=== PATIENT | male | born 1975 | race African-American/Black ===

== ENCOUNTER 2021-12-26 19:05 | Emergency (ER) | payer SELFPAY | END 2021-12-26 22:27 | disposition left against medical advice (07) | LOC: ER 19:06 | DX: Z53.21 Procedure and treatment not carried out due to patient leaving prior to being seen by health care provider (principal) ==

== ENCOUNTER 2021-12-28 16:15 | Emergency (ER) | payer MEDICARE ==
[~2021-12-28] VITALS: Ht 167.6 cm; Wt 97.0 kg
[2021-12-28] MEDS ORDERED: risperiDONE 2mg tablet PO ONE (17:00)
[2021-12-28] MEDS ORDERED: LORazepam 1 MG tablet PO ONE (17:00)
[2021-12-28 17:05] LABS: BASOPHILS % (AUTO) 0.9 % (0-1); EOSINOPHILS # (AUTO) 0.1 X10'3 (0-0.9); EOSINOPHILS % (AUTO) 1.5 % (0-6); HEMATOCRIT 38.6 % (42.0-52.0); HEMOGLOBIN 12.8 g/dl (14.0-17.9); LYMPHOCYTES # (AUTO) 1.9 X10'3 (1.1-4.8); MEAN CORPUSCULAR HEMOGLOBIN 24.6 PG (27.0-31.0); MEAN CORPUSCULAR HGB CONC 33.2 g/dL (33.0-36.5); MEAN CORPUSCULAR VOLUME 74.2 FL (78-98); MEAN PLATELET VOLUME 9.1 FL (7.4-10.4); MONOCYTES # (AUTO) 0.4 X10'3 (0-0.9); NEUTROPHILS # (AUTO) 2.4 X10'3 (1.8-7.7); NEUTROPHILS % (AUTO) 49.6 % (42-75); PLATELET COUNT 201 X10'3 (140-440); RED BLOOD COUNT 5.21 X10'6 (4.70-6.10); RED CELL DISTRIBUTION WIDTH 15.4 % (11.5-14.5); WHITE BLOOD COUNT 4.8 X10'3 (4.5-11.0)
[2021-12-28 17:17] LABS: ALANINE AMINOTRANSFERASE 35 U/L (12-78); ALBUMIN 3.5 G/DL (3.4-5.0); ALBUMIN/GLOBULIN RATIO 0.9 (1.1-1.5); ALKALINE PHOSPHATASE 76 IU/L (46-116); ANION GAP 11 (8-16); ASPARTATE AMINO TRANSFERASE 24 U/L (10-37); BILIRUBIN,TOTAL 0.4 MG/DL (0.1-1.0); BLOOD UREA NITROGEN 10 MG/DL (7-18); BUN/CREATININE RATIO 12.7 (5.4-32.0); CALCIUM 8.5 MG/DL (8.5-10.1); CHLORIDE 106 MMOL/L (99-107); CREATININE 0.79 MG/DL (0.60-1.10); GLUCOSE 119 MG/DL (70-104); POTASSIUM 3.3 MMOL/L (3.5-5.1); SODIUM 141 MMOL/L (135-145); TOTAL CARBON DIOXIDE 24.5 MMOL/L (24-32); TOTAL PROTEIN 7.4 G/DL (6.4-8.2); eGFR > 90 ML/MIN
[2021-12-28 17:28] LABS: ETHANOL < 0.010 GM/DL (0.0-0.010)
--- NOTE | 2021-12-28 21:00 | NUR ---
PATIENT ARRIVED ON THE UNIT IN NO OBVIOUS DISTRESS. NO PHYSICAL COMPLAINT MADE. BREATHING SPONTANOUSLY ON ROOM AIR. PATIENT ADMITS TO AUDIOTARY HALLUCINATION, HE STATES THAT THE VOICES ARE TELLING HIM TO JUMP OFF THE BRIDGE. PATIENT DENIES HAVING ANY SUICIDAL IDEATION AT THIS TIME.
--- NOTE | 2021-12-29 03:44 | NUR ---
PATIENT ASLEEP IN NO OBVIOUS DISTRESS.
--- NOTE | 2021-12-29 06:30 | NUR ---
CARE ASSUMED FROM OFF GOING NURSE SANDY RN. PT. VISIBLE LYING I N BED AWAKE. PT. AMBULATED TO BATHROOM WITH ANY DIFFICULTY NOTED. URINE SAMPLE OBTAINED AND SENT TO LAB. PT. BACK IN BED AFTERWARDS RESTING QUIETLY. STAFF WILL CONTINUE TO MONITOR FOR SAFETY.
[2021-12-29 07:53] LABS: URINE AMPHETAMINE SCREEN NEGATIVE (Neg); URINE BARBITUATE SCREEN NEGATIVE (Neg); URINE BENZODIAZEPINES SCREEN NEGATIVE (Neg); URINE CANNABINOID SCREEN NEGATIVE (Neg); URINE COCAINE SCREEN NEGATIVE (Neg); URINE METHADONE SCREEN NEGATIVE (Neg); URINE OPIATE SCREEN NEGATIVE (Neg); URINE PHENCYCLIDINE SCREEN NEGATIVE (Neg)
[2021-12-29 07:57] LABS: CLARITY,URINE CLEAR (Clear); COLOR,URINE YELLOW (Yellow); GLUCOSE, URINE NEGATIVE (Neg); KETONES,URINE NEGATIVE (Neg); LEUKOCYTE ESTERASE ,URINE NEGATIVE (Neg); NITRITES, URINE NEGATIVE (Neg); OCCULT BLOOD,URINE NEGATIVE (Neg); PH,URINE 5.5 (4.8-8.0); PROTEIN,URINE NEGATIVE (Neg); UA COLLECTION TYPE NON-SPECIFIED; UROBILINOGEN,URINE 0.2 E.U/dL (0.2-1.0)
--- NOTE | 2021-12-29 08:10 | NUR ---
PACKET FAXED TO [facility] OFFICE FOR REVIEW.
[2021-12-29] MEDS ORDERED: RISP3TAB11 PO ×2 (08:34→10:33)
[2021-12-29] MEDS ORDERED: DIVA500T9 PO ×2 (08:34→10:33)
--- NOTE | 2021-12-29 08:40 | NUR ---
THIS PUBLICITY WRITER SPOKE WITH PHARMCIST AT [facility] IN [place] TO VERIFIY CURRENT MEDICATIONS FOR PATIENT. MEDICATION RECONCILIATION COMPLETED AND FAXED TO PHARMACY.
--- NOTE | 2021-12-29 09:10 | NUR ---
PT. PRESENTS CALM AND COOPERATIVE WITH MORNING ASSESSMENT. PT. DENIES ANY CURRENT THOUGHTS OF SI/H OR A/V HALLUCINATIONS. PT. VISIBLE ON THE UNIT NOTED BY STAFF TO BE RESPONDING TO INTERNAL STIMULI WITH SELF DIALOGUE. PT. FOCUSED ON DISCHARGE STATES HE GOING TO [facility] WHEN DISCHARGED. NO BEHAVIORAL ISSUES NOTED. DENIES ANY OTHER COMPLAINTS. STAFF WILL CONTINUE TO MONITOR FOR SAFETY.
--- NOTE | 2021-12-29 10:14 | NUR ---
[facility] CLINICIAN AT BEDSIDE FOR EVALUATION.
--- NOTE | 2021-12-29 10:50 | NUR ---
PT. CLEARED FOR DISCHARGE TO [facility]. PRESCRIPTION FOR DEPAKOTE ER 500 MG TAB AND RISPERDAL 3 MG TAB GIVEN TO PATIENT. PT. ENCOURAGED TO GET PRESCRIPTION FILLED AND F/U WITH [facility] FOR AFTER CARE. PT. PERSONAL BELONGING RETURNED. STAFF CALLED [facility] FOR TRANSPORT.
--- NOTE | 2021-12-29 11:06 | NUR ---
PT. ESCORTED OFF UNIT BY SECURITY FOR DISCHARGE .
[2021-12-29 11:07] VITALS: BP 104/64
[2021-12-29] MEDS ORDERED: divalproex sod 250mg ER (24-hour) tablet PO SCH (21:00)
[2021-12-29] MEDS ORDERED: risperiDONE 0.5mg tablet PO SCH (21:00)
== END 2021-12-29 11:15 ==
LOC: ER 16:16
DX: R45.851 Suicidal ideations (principal); Z20.822 Contact with and (suspected) exposure to COVID-19; F29 Unspecified psychosis not due to a substance or known physiological condition; F20.9 Schizophrenia, unspecified; Z88.8 Allergy status to other drugs, medicaments and biological substances; Z79.899 Other long term (current) drug therapy
CPT/HCPCS: 36415; 80053; 80305; 80320; 81003; 84443; 85025; 87635; 99285; C9803

== ENCOUNTER 2022-01-01 23:42 | Emergency (ER) | payer MEDICARE ==
[~2022-01-01] VITALS: Ht 167.6 cm; Wt 106.8 kg
[~2022-01-01 23:42] MED LIST: DIVA500T9 PO; RISP3TAB11 PO
--- NOTE | 2022-01-02 02:07 | NUR ---
Pt brought back to [facility] and put into green scrubs, belongings attained and locked up, pt tucked into bed after interviewing and states no needs at this time.
[2022-01-02 02:50] LABS: URINE AMPHETAMINE SCREEN NEGATIVE (Neg); URINE BARBITUATE SCREEN NEGATIVE (Neg); URINE BENZODIAZEPINES SCREEN NEGATIVE (Neg); URINE CANNABINOID SCREEN NEGATIVE (Neg); URINE COCAINE SCREEN NEGATIVE (Neg); URINE METHADONE SCREEN NEGATIVE (Neg); URINE OPIATE SCREEN NEGATIVE (Neg); URINE PHENCYCLIDINE SCREEN NEGATIVE (Neg)
[2022-01-02 03:03] LABS: BASOPHILS % (AUTO) 0.8 % (0-1); EOSINOPHILS # (AUTO) 0.1 X10'3 (0-0.9); EOSINOPHILS % (AUTO) 2.9 % (0-6); HEMATOCRIT 39.2 % (42.0-52.0); HEMOGLOBIN 12.5 g/dl (14.0-17.9); LYMPHOCYTES # (AUTO) 1.5 X10'3 (1.1-4.8); LYMPHOCYTES % (AUTO) 35.6 % (21-51); MEAN CORPUSCULAR HEMOGLOBIN 23.9 PG (27.0-31.0); MEAN CORPUSCULAR HGB CONC 31.8 g/dL (33.0-36.5); MEAN CORPUSCULAR VOLUME 75.1 FL (78-98); MEAN PLATELET VOLUME 8.9 FL (7.4-10.4); MONOCYTES # (AUTO) 0.4 X10'3 (0-0.9); MONOCYTES % (AUTO) 9.5 % (2-12); NEUTROPHILS # (AUTO) 2.2 X10'3 (1.8-7.7); NEUTROPHILS % (AUTO) 51.2 % (42-75); PLATELET COUNT 205 X10'3 (140-440); RED BLOOD COUNT 5.22 X10'6 (4.70-6.10); RED CELL DISTRIBUTION WIDTH 15.2 % (11.5-14.5); WHITE BLOOD COUNT 4.3 X10'3 (4.5-11.0)
[2022-01-02 03:18] LABS: ALANINE AMINOTRANSFERASE 33 U/L (12-78); ALBUMIN 3.5 G/DL (3.4-5.0); ALKALINE PHOSPHATASE 65 IU/L (46-116); ANION GAP 11 (8-16); ASPARTATE AMINO TRANSFERASE 21 U/L (10-37); BILIRUBIN,TOTAL 0.5 MG/DL (0.1-1.0); BLOOD UREA NITROGEN 16 MG/DL (7-18); BUN/CREATININE RATIO 23.5 (5.4-32.0); CALCIUM 8.4 MG/DL (8.5-10.1); CHLORIDE 108 MMOL/L (99-107); CREATININE 0.68 MG/DL (0.60-1.10); ETHANOL < 0.010 GM/DL (0.0-0.010); GLUCOSE 94 MG/DL (70-104); POTASSIUM 3.4 MMOL/L (3.5-5.1); SODIUM 142 MMOL/L (135-145); TOTAL CARBON DIOXIDE 23.1 MMOL/L (24-32); eGFR > 90 ML/MIN
--- NOTE | 2022-01-02 04:13 | NUR ---
pt sleeping at this time, no distress noted.
[2022-01-02] MEDS ORDERED: RISP3TAB11 PO (05:03)
[2022-01-02] MEDS ORDERED: DIVA-81 PO (05:03)
--- NOTE | 2022-01-02 06:00 | NUR ---
ASSUMED CARE FROM OFF GOING NURSE SERENITY RN. PT. VISIBLE LYING ON A BED IN THE HALLWAY. PT. RESTING WITH COVERS PULLED OVER HIS HEAD. NOTED RISE AND FALL OF CHEST WITHOUT ANY DIFFICULTY NOTED.
[2022-01-02 06:11] VITALS: BP 122/63
--- NOTE | 2022-01-02 06:31 | NUR ---
pt resting in bed, no distress noted.
--- NOTE | 2022-01-02 08:00 | NUR ---
PT. AAOX4 THIS SHIFT DENIES ANY CURRENT SI/HI OR A/V HALLUCINATIONS. PT. HAS NO SCHEDULED MORNING MEDICATIONS. VISIBLE ON THE UNIT LYING IN BED IN HALLWAY . PT. FOCUSED ON DISCHARGE STATES," I'M GOING TO [facility] ". PT. WAITING FOR DISCHARGE ORDERS. STAFF WILL CONTINUE TO MONITOR FOR SAFETY.
--- NOTE | 2022-01-02 11:30 | NUR ---
PT. DISCHARGED TO [facility]. PT. HAS RECEIVED ALL PERSONAL BELONGINGS AND DISCHARGE PAPERWORK. PT. ESCORTED OFF THE UNIT BY SECURITY.
[2022-01-02] MEDS ORDERED: risperiDONE 2mg tablet PO SCH (21:00)
[2022-01-02] MEDS ORDERED: divalproex sod 250mg ER (24-hour) tablet PO SCH (21:00)
[2022-01-02] MEDS ORDERED: risperiDONE 0.5mg tablet PO SCH (21:00)
== END 2022-01-02 11:27 | disposition home or self-care (01) ==
LOC: ER 23:43
DX: R45.851 Suicidal ideations (principal); Z20.822 Contact with and (suspected) exposure to COVID-19; F20.9 Schizophrenia, unspecified; Z88.8 Allergy status to other drugs, medicaments and biological substances; Z79.899 Other long term (current) drug therapy
CPT/HCPCS: 36415; 80053; 80305; 80320; 85025; 87635; 99285; C9803

== ENCOUNTER 2022-01-05 13:21 | Emergency (ER) | payer MEDICARE ==
[~2022-01-05] VITALS: Ht 167.6 cm; Wt 106.0 kg
[~2022-01-05 13:21] MED LIST changes: +DIVA-81 PO; -DIVA500T9 PO
[2022-01-05] MEDS ORDERED: risperiDONE 0.5mg tablet PO ONE (14:40)
[2022-01-05] MEDS ORDERED: risperiDONE 2mg tablet PO ONE (14:40)
[2022-01-05] MEDS ORDERED: RISP3TAB11 PO (14:52)
[2022-01-05] MEDS ORDERED: DIVA-81 PO (14:52)
[2022-01-05 15:31] VITALS: BP 121/75
== END 2022-01-05 15:33 | disposition home or self-care (01) ==
LOC: ER 13:21
DX: F20.9 Schizophrenia, unspecified (principal); Z88.8 Allergy status to other drugs, medicaments and biological substances; Z79.899 Other long term (current) drug therapy
CPT/HCPCS: 99283

== ENCOUNTER 2022-01-07 19:55 | Emergency (ER) | payer MEDICARE | END 2022-01-08 00:06 | disposition left against medical advice (07) | LOC: ER 19:57 | DX: R45.851 Suicidal ideations (principal); Z53.21 Procedure and treatment not carried out due to patient leaving prior to being seen by health care provider ==

== ENCOUNTER 2022-01-09 19:44 | Emergency (ER) | payer MEDICARE ==
[~2022-01-09] VITALS: Ht 167.6 cm; Wt 106.8 kg
[2022-01-09 21:32] LABS: CLARITY,URINE CLEAR (Clear); COLOR,URINE YELLOW (Yellow); GLUCOSE, URINE NEGATIVE (Neg); KETONES,URINE NEGATIVE (Neg); LEUKOCYTE ESTERASE ,URINE NEGATIVE (Neg); NITRITES, URINE NEGATIVE (Neg); OCCULT BLOOD,URINE NEGATIVE (Neg); PROTEIN,URINE NEGATIVE (Neg); UROBILINOGEN,URINE 0.2 E.U/dL (0.2-1.0)
[2022-01-09 21:33] LABS: UA COLLECTION TYPE CLN CATCH MIDSTREAM
[2022-01-09 21:44] LABS: BASOPHILS # (AUTO) 0.1 X10'3 (0-0.2); BASOPHILS % (AUTO) 1.6 % (0-1); EOSINOPHILS # (AUTO) 0.2 X10'3 (0-0.9); EOSINOPHILS % (AUTO) 4.3 % (0-6); HEMATOCRIT 40.3 % (42.0-52.0); LYMPHOCYTES # (AUTO) 2.1 X10'3 (1.1-4.8); MEAN CORPUSCULAR HEMOGLOBIN 23.9 PG (27.0-31.0); MEAN CORPUSCULAR HGB CONC 32.3 g/dL (33.0-36.5); MEAN CORPUSCULAR VOLUME 73.9 FL (78-98); MEAN PLATELET VOLUME 8.6 FL (7.4-10.4); MONOCYTES # (AUTO) 0.4 X10'3 (0-0.9); MONOCYTES % (AUTO) 8.5 % (2-12); NEUTROPHILS % (AUTO) 42.6 % (42-75); PLATELET COUNT 233 X10'3 (140-440); RED BLOOD COUNT 5.45 X10'6 (4.70-6.10); RED CELL DISTRIBUTION WIDTH 15.4 % (11.5-14.5); WHITE BLOOD COUNT 4.8 X10'3 (4.5-11.0)
[2022-01-09 21:44] LABS: URINE AMPHETAMINE SCREEN NEGATIVE (Neg); URINE BARBITUATE SCREEN NEGATIVE (Neg); URINE BENZODIAZEPINES SCREEN NEGATIVE (Neg); URINE CANNABINOID SCREEN NEGATIVE (Neg); URINE COCAINE SCREEN NEGATIVE (Neg); URINE METHADONE SCREEN NEGATIVE (Neg); URINE OPIATE SCREEN NEGATIVE (Neg); URINE PHENCYCLIDINE SCREEN NEGATIVE (Neg)
[2022-01-09 21:57] LABS: ALANINE AMINOTRANSFERASE 34 U/L (12-78); ALBUMIN 3.7 G/DL (3.4-5.0); ALBUMIN/GLOBULIN RATIO 0.9 (1.1-1.5); ALKALINE PHOSPHATASE 71 IU/L (46-116); ANION GAP 12 (8-16); ASPARTATE AMINO TRANSFERASE 19 U/L (10-37); BILIRUBIN,TOTAL 0.4 MG/DL (0.1-1.0); BLOOD UREA NITROGEN 14 MG/DL (7-18); BUN/CREATININE RATIO 16.1 (5.4-32.0); CALCIUM 8.6 MG/DL (8.5-10.1); CHLORIDE 108 MMOL/L (99-107); CREATININE 0.87 MG/DL (0.60-1.10); GLUCOSE 108 MG/DL (70-104); POTASSIUM 3.4 MMOL/L (3.5-5.1); SODIUM 144 MMOL/L (135-145); TOTAL CARBON DIOXIDE 23.6 MMOL/L (24-32); TOTAL PROTEIN 7.6 G/DL (6.4-8.2); eGFR > 90 ML/MIN
[2022-01-09] MEDS ORDERED: potassium Cl 20 mEq SR tablet PO STA (22:30)
--- NOTE | 2022-01-09 22:43 | NUR ---
Pt arrived to edof from main ER. Pt states he is here because he is suicidal. Pct assisted patient to change into green scrubs. Pt got in bed. Pt states he has no other complaints.
--- NOTE | 2022-01-09 23:18 | NUR ---
Pt is in bed sleeping rr even and unlabored
--- NOTE | 2022-01-10 04:08 | NUR ---
Pt is laying on his right side asleep rr 16
--- NOTE | 2022-01-10 06:00 | NUR ---
PT. CARE ASSUMED FROM ELIZABETH RN. PT. LYING IN BED RESTING QUIETLY WITH EYES CLOSED NO DISTRESS NOTED.
--- NOTE | 2022-01-10 09:11 | NUR ---
PT. AAOX4 THIS SHIFT DENIES ANY CURRENT SI/HI OR VISUAL HALLUCINATIONS. PT. REPORTS AUDITORY HALLUCIANTIONS TELLING HIM TO JUMP OF THE BRIDGE. PT. DENIES ANY COMMANDS TO HARM OTHERS. PT. STATES PER HIS LAST ADMISSION HE WAS NOT ABLE TO STAY AT THE [facility] D/T ALL THE RULES. PT. STATES HE HAS BEEN LIVING ON THE STREETS. PT. HAS NO SCHEDULED MEDICATIONS THIS MORNING. COMPLIANT WITH MORNING ASSESSMENT. DENIES ANY OTHER COMPLAINTS. STAFF WILL CONTINUE TO MONITOR FOR SAFETY.
--- NOTE | 2022-01-10 12:00 | NUR ---
PT. DISCHARGE THIS SHIFT TO [facility]. PT. HAS REFUSED TO WAIT SACK LUNCH. PT. HAS RECEIVED ALL DISCHARGE INSTRUCTIONS NO MEDICATION CHANGES THIS ADMISSION. PT. GIVEN INFORMATION FOR SUICIDE HOTLINE. PT. STATES AN UNDERSTANDING OF DISCHARGE INSTRUCTIONS. PT. ESCORTED OFF THE UNIT BY SECURITY OFFICERS.
[2022-01-10 12:58] VITALS: BP 114/72
== END 2022-01-10 13:02 | disposition home or self-care (01) ==
LOC: ER 19:44
DX: R45.851 Suicidal ideations (principal); Z20.822 Contact with and (suspected) exposure to COVID-19; F20.9 Schizophrenia, unspecified; Z86.69 Personal history of other diseases of the nervous system and sense organs; Z88.8 Allergy status to other drugs, medicaments and biological substances; Z79.899 Other long term (current) drug therapy
CPT/HCPCS: 36415; 80053; 80305; 81003; 84443; 85025; 87635; 99285; C9803

== ENCOUNTER 2022-01-14 20:34 | Emergency (ER) | payer MEDICARE ==
[~2022-01-14] VITALS: Ht 167.6 cm; Wt 106.8 kg
[2022-01-14 20:45] VITALS: BP 119/75
== END 2022-01-14 22:46 | disposition left against medical advice (07) ==
LOC: ER 20:36
DX: R45.851 Suicidal ideations (principal); Z53.21 Procedure and treatment not carried out due to patient leaving prior to being seen by health care provider